=== PATIENT | female | born 1990 | race Two or more races ===

== ENCOUNTER → 2018-06-05 | Outpatient (CLI) | payer OTHER, MEDICAID | END | disposition home or self-care (01) | LOC: RADMN 12:37 | DX: M79.89 Other specified soft tissue disorders (principal); R60.0 Localized edema | CPT/HCPCS: 73718; 73721 ==

== ENCOUNTER → 2022-08-06 | Day surgery (SDC) | payer OTHER ==
[~2022-08-06] VITALS: Ht 142.2 cm; Wt 50.9 kg
[~2022-08-06] MED LIST: DEXAMETHASONE SOD PHOS 4 MG/ML VIAL IVP ONE; FERR325T27 PO; FentaNYL CITRATE PF 100 MCG/2 ML VIAL IVP ONE; FentaNYL CITRATE PF 100 MCG/2 ML VIAL IVP PRN; HYDROmorphone HCL 2 MG/ML SYRINGE IVP PRN; MEPERIDINE-PF 25 MG/ML VIAL IVP PRN; MIDAZOLAM HCL 2 MG/2 ML VIAL IVP ONE; NORE0.355 PO; ONDANSETRON HCL 4 MG/2 ML VIAL IVP ONE; OXYGEN THERAPY IH SCH; PROPOFOL 1% 20 ML VIAL IVP ONE; RINGERS SOLUTION,LACTATED 1,000 ML IV ONE
[2022-08-06 09:19] LABS: COVID AG,FIA SOURCE NASOPHARYNGEAL
[2022-08-06 09:56] LABS: BASOPHILS % (AUTO) 1.5 % (0.0-2.0); HEMATOCRIT 31.5 % (36-46); HEMOGLOBIN 9.9 g/dL (12.0-16.0); LYMPHOCYTES # (AUTO) 1.7 K/uL (1.0-4.8); LYMPHOCYTES % (AUTO) 19.9 % (22.0-44.0); MEAN CORPUSCULAR HEMOGLOBIN 24.7 pg (26.0-34.0); MEAN CORPUSCULAR HGB CONC 31.6 G/dL (31.0-37.0); MEAN CORPUSCULAR VOLUME 78 fL (80-100); MONOCYTES # (AUTO) 0.8 K/uL (0.1-1.0); MONOCYTES % (AUTO) 9.4 % (2.0-9.0); NEUTROPHILS # (AUTO) 5.8 K/uL (1.8-7.7); NEUTROPHILS % (AUTO) 68.2 % (40.0-70.0); PLATELET COUNT (AUTO) 436 K/uL (150-450); RED BLOOD CELL COUNT(AUTO) 4.03 MIL/uL (4.00-5.20); RED CELL DISTRIBUTION WIDTH 14.9 % (11.5-14.5)
== END | disposition still patient (30) ==
LOC: SURGERY 08:40
PROVIDERS: ATTEND Student in an Organized Health Care Education/Training Program
DX: N93.9 Abnormal uterine and vaginal bleeding, unspecified (principal); D25.9 Leiomyoma of uterus, unspecified; Z20.822 Contact with and (suspected) exposure to COVID-19; Z79.899 Other long term (current) drug therapy; D64.9 Anemia, unspecified; Z86.73 Personal history of transient ischemic attack (TIA), and cerebral infarction without residual deficits; Z98.890 Other specified postprocedural states
CPT/HCPCS: 58120; 88305; 87426; 84703; 85025; 36415; 58300; J2704; J1100; J3010; J2250; J2405; J7120; C9803